=== PATIENT | female | born 1980 | race Caucasian/White ===

== ENCOUNTER 2017-05-13 08:34 | Emergency (ER) | payer OTHER, MEDICAID ==
[2017-05-13 13:20] LABS: RHOGAM PROFILE 1 1
== END 2017-05-13 13:45 | disposition home or self-care (01) ==
LOC: FTE 13:45
DX: Z31.82 Encounter for Rh incompatibility status (principal)
CPT/HCPCS: 36415; 86850; 86885; 86900; 86901; 99283

== ENCOUNTER 2017-07-12 13:22 | Inpatient (IN) | payer OTHER ==
[2017-07-12] MEDS: LACTATED RINGER'S 1,000 ML IV ×2 (15:13→16:35)
[2017-07-12] MEDS ORDERED: MISOPROSTOL 200 MCG TAB PR (19:00)
[2017-07-12] MEDS ORDERED: CARBOPROST 250 MCG INJ IM (19:00)
[2017-07-12] MEDS ORDERED: IBUPROFEN 600 MG TAB PO (19:00)
[2017-07-12] MEDS ORDERED: BUTORPHANOL 2 MG INJ IV ×2 (19:00)
[2017-07-12] MEDS ORDERED: LIDOCAINE 1% (MPF) 30 ML INJ INJ (19:00)
[2017-07-12] MEDS ORDERED: HYDROCODONE/APAP (5/325) TAB PO (19:00)
[2017-07-12] MEDS ORDERED: OXYTOCIN 30 UNITS/LR 500 ML IV ×2 (19:00)
[2017-07-12 19:51] LABS: ADD MAN DIFF? NO
[2017-07-12 19:56] LABS: BASOPHILS % 0.2 % (0.0-2.0); HEMATOCRIT 30.8 % (37.0-47.0); HEMOGLOBIN 11.1 g/dl (12.0-16.0); LYMPHOCYTES # 1.1 10^3/ul (0.8-2.9); LYMPHOCYTES % 8.5 % (15.0-51.0); MEAN CORPUSCULAR HEMOGLOBIN 32.6 pg (29.0-33.0); MEAN CORPUSCULAR VOLUME 90.6 fl (82.0-101.0); MEAN PLATELET VOLUME 9.7 fl (7.4-10.4); MONOCYTE # 0.7 10^3/ul (0.3-0.9); NEUTROPHIL # 11.2 10^3/ul (1.6-7.5); NEUTROPHILS % 85.8 % (39.0-77.0); PLATELET COUNT 162 10^3/UL (140-415); RED CELL DISTRIBUTION WIDTH 14.1 % (11.5-14.5)
[2017-07-12 20:27] LABS: PROTIME 13.3 Sec (11.9-14.9)
[2017-07-12 20:28] LABS: PARTIAL THROMBOPLASTIN TIME 29.4 Sec (25.0-35.0)
[2017-07-12 20:44] LABS: HEPATITIS B SURFACE ANTIGEN NEGATIVE (NEGATIVE)
[2017-07-13] MEDS: OXYTOCIN 30 UNITS/LR 500 ML IV (02:57)
[2017-07-13] MEDS: LACTATED RINGER'S 1,000 ML IV ×4 (03:10→18:30)
[2017-07-13] MEDS ORDERED: DIPHENHYDRAMINE 50 MG INJ IV (20:00)
[2017-07-13] MEDS ORDERED: ONDANSETRON 4 MG INJ IV (20:00)
[2017-07-13] MEDS ORDERED: EPHEDrine SULFATE 50 MG/5 ML SYG IV (20:00)
[2017-07-13] MEDS ORDERED: NALOXONE (0.4 MG/ML) INJ IV (20:00)
[2017-07-13] MEDS: FENTAnyl 2MCG/ML-ROPIV 0.2% 100 ML BAG EPI (20:09)
[2017-07-13 22:16] LABS: RAPID PLASMA REAGIN NONREACTIVE (NR)
[2017-07-14] MEDS: LACTATED RINGER'S 1,000 ML IV ×2 (02:40→07:32)
[2017-07-14] MEDS: FENTAnyl 2MCG/ML-ROPIV 0.2% 100 ML BAG EPI (06:40)
[2017-07-14] MEDS ORDERED: AMPICILLIN 2 GM/NS (PMX) 100 ML (10:30)
[2017-07-14] MEDS: AMPICILLIN 2 GM/NS (PMX) 100 ML IVPB (10:37)
[2017-07-14] MEDS: METHYLERGONOVINE 0.2 MG INJ IM (13:14)
[2017-07-14] MEDS: OXYTOCIN 30 UNITS/LR 500 ML IV ×2 (13:26→16:37)
[2017-07-14] MEDS ORDERED: CARBOPROST 250 MCG INJ IM (13:30)
[2017-07-14] MEDS ORDERED: METHYLERGONOVINE 0.2 MG INJ IM (13:30)
[2017-07-14] MEDS ORDERED: ONDANSETRON 4 MG INJ IV (13:30)
[2017-07-14] MEDS ORDERED: SENNA/DOCUSATE NA (8.6MG/50MG) TAB PO (13:30)
[2017-07-14] MEDS ORDERED: OXYCODONE/ASPIRIN (4.88/325) TAB PO ×2 (13:30)
[2017-07-14] MEDS ORDERED: MISOPROSTOL 200 MCG TAB PR (13:30)
[2017-07-14 17:03] LABS: ADD MAN DIFF? NO
[2017-07-14 17:05] LABS: WHITE BLOOD COUNT 19.5 10^3/ul (4.8-10.8)
[2017-07-14 17:05] LABS: BASOPHILS % 0.2 % (0.0-2.0); EOSINOPHILS % 0.1 % (0.0-7.0); HEMATOCRIT 32.5 % (37.0-47.0); HEMOGLOBIN 11.9 g/dl (12.0-16.0); LYMPHOCYTES # 1.4 10^3/ul (0.8-2.9); LYMPHOCYTES % 7.4 % (15.0-51.0); MEAN CORPUSCULAR HEMOGLOBIN 32.8 pg (29.0-33.0); MEAN CORPUSCULAR HGB CONC 36.6 g/dl (32.0-37.0); MEAN CORPUSCULAR VOLUME 89.5 fl (82.0-101.0); MEAN PLATELET VOLUME 9.5 fl (7.4-10.4); MONOCYTE # 0.9 10^3/ul (0.3-0.9); MONOCYTES % 4.8 % (0.0-11.0); NEUTROPHIL # 16.9 10^3/ul (1.6-7.5); NEUTROPHILS % 86.3 % (39.0-77.0); PLATELET COUNT 182 10^3/UL (140-415); RED BLOOD COUNT 3.63 10^6/ul (4.20-5.40)
[2017-07-14] MEDS: WITCH HAZEL/GLYCERIN PAD PR (17:20)
[2017-07-14] MEDS: BENZOCAINE 20% 56 ML SPRAY TOP (17:20)
[2017-07-14] MEDS: IBUPROFEN 600 MG TAB PO (17:20)
[2017-07-14] MEDS: SENNA/DOCUSATE NA (8.6MG/50MG) TAB PO (21:34)
[2017-07-15] MEDS: IBUPROFEN 600 MG TAB PO ×5 (00:27→23:36)
[2017-07-15] MEDS: SENNA/DOCUSATE NA (8.6MG/50MG) TAB PO ×2 (08:54→20:59)
[2017-07-15] MEDS: FERROUS SULFATE (EC) 325 MG TAB PO ×2 (14:22→20:59)
[2017-07-15] MEDS ORDERED: FERROUS SULFATE (EC) 325 MG TAB PO (21:00)
[2017-07-16] MEDS: IBUPROFEN 600 MG TAB PO ×2 (05:39→12:09)
[2017-07-16] MEDS: FERROUS SULFATE (EC) 325 MG TAB PO (09:59)
[2017-07-16] MEDS: SENNA/DOCUSATE NA (8.6MG/50MG) TAB PO (09:59)
[2017-07-16 11:10] LABS: ADD MAN DIFF? NO
[2017-07-16 11:21] LABS: BASOPHILS % 0.4 % (0.0-2.0); EOSINOPHILS # 0.1 10^3/ul (0.0-0.5); EOSINOPHILS % 0.8 % (0.0-7.0); HEMATOCRIT 29.1 % (37.0-47.0); HEMOGLOBIN 10.5 g/dl (12.0-16.0); LYMPHOCYTES # 1.5 10^3/ul (0.8-2.9); LYMPHOCYTES % 16.5 % (15.0-51.0); MEAN CORPUSCULAR HEMOGLOBIN 32.4 pg (29.0-33.0); MEAN CORPUSCULAR HGB CONC 36.1 g/dl (32.0-37.0); MEAN CORPUSCULAR VOLUME 89.8 fl (82.0-101.0); MEAN PLATELET VOLUME 9.7 fl (7.4-10.4); MONOCYTE # 0.6 10^3/ul (0.3-0.9); NEUTROPHIL # 6.7 10^3/ul (1.6-7.5); NEUTROPHILS % 74.5 % (39.0-77.0); PLATELET COUNT 172 10^3/UL (140-415); RED BLOOD COUNT 3.24 10^6/ul (4.20-5.40); RED CELL DISTRIBUTION WIDTH 14.1 % (11.5-14.5)
== END 2017-07-16 16:05 | disposition home or self-care (01) | DRG 775 ==
LOC: OBT 13:22 → L-D 07-13 07:56 → PP1 07-14 16:59 → L-D 13:24 → OBT 18:18 → L-D 18:18
PROVIDERS: Obstetrics & Gynecology
PROC: 10E0XZZ Delivery of Products of Conception, External Approach (ICD-10-PCS; principal; 2017-07-14)
DX: O41.03X0 Oligohydramnios, third trimester, not applicable or unspecified (principal); Z37.0 Single live birth; Z3A.37 37 weeks gestation of pregnancy
CPT/HCPCS: 36415; 62319; 76815; 76818; 85025; 85610; 85730; 86592; 86850; 86870; 86885; 86900; 86901; 87340; 96360